=== PATIENT | female | born 1945 | race Caucasian/White ===

== ENCOUNTER 2018-11-15 19:39 | Inpatient (IN) ==
[2018-11-15] MEDS ORDERED: SODIUM CHLORIDE 0.9% 1000ML 1,000 ML IV ONE (20:59)
[2018-11-15 21:27] LABS: Basophils # (auto) 0.02 K/uL (0-0.2); Basophils % (auto) 0.2 %; Eosinophils # (auto) 0.14 K/uL (0-0.5); Eosinophils % (auto) 1.1 %; Hematocrit (blood only) 37.3 % (37-47); Immature Granulocytes # (auto) 0.02 K/uL (0.00-0.02); Immature Granulocytes % (auto) 0.2 %; Lymphocytes # (auto) 1.37 K/uL (1.2-3.4); Mean Corpuscular Hgb Conc 32.2 g/dL (32-36); Mean Corpuscular Volume 92.3 fL (80-100); Mean Platelet Volume 9.7 fL (7.4-10.4); Monocytes # (auto) 0.62 K/uL (0.11-0.59); Neutrophils % (auto) 82.5 %; Platelet Count 237 K/uL (130-400); RDW Coefficient of Variation 13.8 % (11.5-14.5); RDW Standard Deviation 46.4 fL (36.4-46.3); Red Blood Count 4.04 M/uL (4.2-5.4); White Blood Count 12.47 K/uL (4.8-10.8)
[2018-11-15 21:44] LABS: Alanine Aminotransferase 29 U/L (12-78); Albumin Level 3.2 gm/dl (3.4-5.0); Aspartate Aminotransferase 31 U/L (15-37); BUN Creatinine Ratio 23.2 (10-20); Blood Urea Nitrogen 13 mg/dl (7-18); Calcium 8.2 mg/dl (8.5-10.1); Carbon Dioxide 26 mmol/L (21-32); Chloride 103 mmol/L (98-107); Creatinine Clr Calc Pharmacy 60.4 ml/min; Est GFR (African American) 105.1; Est GFR (Non-African American) 90.7; Glucose 108 mg/dl (70-99); Magnesium 2.4 mg/dl (1.8-2.4); Potassium 3.6 mmol/L (3.5-5.1); Sodium 139 mmol/L (136-145)
--- NOTE | 2018-11-15 21:49 | XRay Report ---
SINGLE VIEW CHEST CLINICAL HISTORY: Syncope. FINDINGS: An AP, portable, upright chest radiograph is obtained. No prior studies are available for c omparison at the time of dictation. The examination is degraded by portable technique and patient rot ation. The cardiomediastinal silhouette is unremarkable comment noting atherosclerotic calcification of the thoracic aorta. Enlargement of the central pulmonary arteries suggests pulmonary artery hyper tension. Emphysema is suspected. Interstitial thickening is likely chronic. Patchy airspace consolida tion is seen at the lateral right lung base. A trace right pleural effusion is suspected. Atelectasis is noted at the left lung base. No pneumothorax is seen. The skeletal structures are osteopenic. The bony thorax is grossly intact. IMPRESSION: 1. There is patchy airspace consolidation at the right lung base. This could represent scarring/atele ctasis and/or pneumonia/aspiration pneumonitis. Clinical correlation will be required and radiographi c follow-up to resolution is recommended. 2. There is a trace right pleural effusion. 3. Suspect emphysema. Electronically signed by: Roque Church M.D. 11/15/2018 9:47 PM
[2018-11-15 21:55] LABS: Albumin Globulin Ratio 1.1 (0.9-2); Alkaline Phosphatase 60 U/L (45-117); Bilirubin,Total 0.2 mg/dl (0.2-1); Phosphorus 3.7 mg/dl (2.5-4.9); Total Protein 6.2 gm/dl (6.4-8.2); Troponin I < 0.015 ng/ml (0-0.045)
[2018-11-15] MEDS ORDERED: SODIUM CHLORIDE 0.9% 1000ML 500 ML IV ONE (23:09)
[2018-11-15] MEDS ORDERED: ALBUT/IPRATROP 3MG/0.5MG NEB 3 ML VIAL NEB STA (23:31)
[2018-11-16] MEDS ORDERED: methylPREDNISolone 125 MG/2 ML VIAL IV STA (01:26)
[2018-11-16] MEDS ORDERED: LEVOFLOXACIN/D5W 750 MG/150 ML BAG IV SCH (01:30)
--- NOTE | 2018-11-16 02:01 | Emergency Department Note ---
Entered by Uriel Farrar acting as a scribe for Shawn Man MD History of Present Illness General Chief complaint: Syncope Stated complaint: SYNCOPE Time Seen by Provider: 11/15/18 20:58 Source: patient History of Present Illness Onset (ago): hour(s) (prior to arrival) Location: head (syncope) Pain Consistency: + other (episode) Exacerbated By: + other (drinking gin and tonic) Associated symptoms: + nausea/vomiting and + other (tiredness, unresponsive) The patient is a 73 year old F who presents to the Emergency Room with complaints of an episode of syncope that occurred prior to arrival. The majority of the HPI was provided by the patients daughter. She states that the patient was at a graduation constitution party for her grandson. She notes that the patient did not have much to eat during the day. She adds that the patient drank gin and tonic at the constitution party. She states that the patient complained that she was tired and threw up. She notes that after throwing up, the patient put her head down on a table and was unresponsive. She states that the patient recently has lost a lot of weight. She adds that the patient is not on any blood thinners. Home Medications Home Medications Medication Instructions Recorded Confirmed Type cholecalciferol (vitamin D3) 1,000 unit PO DAILY 11/16/18 11/16/18 History [Vitamin D3] fluticasone furoate-vilanterol 1 puff INHALATION DAILY 11/16/18 11/16/18 History [Breo Ellipta] lorazepam 0.5 mg PO BID PRN 11/16/18 11/16/18 History paroxetine HCl [Paxil] 10 mg PO DAILY 11/16/18 11/16/18 History Allergies Allergy/AdvReac Type Severity Reaction Status Date / Time rofecoxib [From Vioxx] Allergy Unknown Verified 11/16/18 01:50 Sulfa (Sulfonamide Allergy Rash Verified 11/16/18 01:50 Antibiotics) Past Med/Surg History Medical History No pertinent past medical history Family History Other No significant family history Social History Preferred Language: [place] Communication Ability: Effective City Bailiff Required: No Beliefs That Will Affect Care: None Current Living Situation: Alone Other Information That Helps Us Care for You: No Feels Safe at Home: Yes Safety Concerns: Feels Safe At This Time Smoking Status: Current some day smoker Hx Alcohol Use: Yes Alcohol type: hard liquor Hx Substance Use: No Review of Systems See HPI for pertinent positives & negatives. and A total of 10 systems reviewed and were otherwise negative Physical Exam Vital Signs Vital Signs - 24 hr 11/15/18 19:44 11/15/18 19:49 11/15/18 19:51 Temperature 35.6 C L Temperature Source Rectal Sepsis Recent Fever Within 48 Hours No Sepsis Action Taken by Nursing No Action Required Pulse Rate 70 72 68 Pulse Rate [Right Finger] Pulse Rate from SpO2 Sensor 70 69 Pulse Rhythm [Right Finger] Pulse Strength [Right Finger] Respiratory Rate 16 20 21 Respiratory Effort / Characteristics Respiratory Depth Normal Respiratory Pattern Blood Pressure 127/60 127/60 Blood Pressure [Right Arm] Blood Pressure Mean 82 82 Blood Pressure Mean [Right Arm] Blood Pressure Position [Right Arm] Pulse Oximetry 94 96 95 Pulse Oximetry [Right Index Finger] Oxygen Delivery Method Room Air Oxygen Delivery Method [Right Index Finger] Oxygen Flow Rate Oxygen Flow Rate [Right Index Finger] 11/15/18 20:00 11/15/18 20:01 11/15/18 20:30 Temperature Temperature Source Sepsis Recent Fever Within 48 Hours Sepsis Action Taken by Nursing Pulse Rate 64 64 57 L Pulse Rate [Right Finger] Pulse Rate from SpO2 Sensor 64 64 56 L Pulse Rhythm [Right Finger] Pulse Strength [Right Finger] Respiratory Rate 18 18 17 Respiratory Effort / Characteristics Respiratory Depth Respiratory Pattern Blood Pressure 118/63 Blood Pressure [Right Arm] Blood Pressure Mean 81 Blood Pressure Mean [Right Arm] Blood Pressure Position [Right Arm] Pulse Oximetry 99 99 100 Pulse Oximetry [Right Index Finger] Oxygen Delivery Method Oxygen Delivery Method [Right Index Finger] Oxygen Flow Rate Oxygen Flow Rate [Right Index Finger] 11/15/18 20:31 11/15/18 20:32 11/15/18 21:00 Temperature Temperature Source Sepsis Recent Fever Within 48 Hours Sepsis Action Taken by Nursing Pulse Rate 70 64 67 Pulse Rate [Right Finger] Pulse Rate from SpO2 Sensor 69 64 67 Pulse Rhythm [Right Finger] Pulse Strength [Right Finger] Respiratory Rate 15 17 16 Respiratory Effort / Characteristics Respiratory Depth Respiratory Pattern Blood Pressure 78/51 L 87/45 L Blood Pressure [Right Arm] Blood Pressure Mean 60 59 Blood Pressure Mean [Right Arm] Blood Pressure Position [Right Arm] Pulse Oximetry 100 100 98 Pulse Oximetry [Right Index Finger] Oxygen Delivery Method Oxygen Delivery Method [Right Index Finger] Oxygen Flow Rate Oxygen Flow Rate [Right Index Finger] 11/15/18 21:01 11/15/18 21:02 11/15/18 21:30 Temperature Temperature Source Sepsis Recent Fever Within 48 Hours Sepsis Action Taken by Nursing Pulse Rate 67 65 79 Pulse Rate [Right Finger] Pulse Rate from SpO2 Sensor 67 65 79 Pulse Rhythm [Right Finger] Pulse Strength [Right Finger] Respiratory Rate 17 33 H 16 Respiratory Effort / Characteristics Respiratory Depth Respiratory Pattern Blood Pressure 73/37 L 84/43 L Blood Pressure [Right Arm] Blood Pressure Mean 49 56 Blood Pressure Mean [Right Arm] Blood Pressure Position [Right Arm] Pulse Oximetry 98 99 99 Pulse Oximetry [Right Index Finger] Oxygen Delivery Method Oxygen Delivery Method [Right Index Finger] Oxygen Flow Rate Oxygen Flow Rate [Right Index Finger] 11/15/18 21:31 11/15/18 22:00 11/15/18 22:01 Temperature Temperature Source Sepsis Recent Fever Within 48 Hours Sepsis Action Taken by Nursing Pulse Rate 77 73 75 Pulse Rate [Right Finger] Pulse Rate from SpO2 Sensor 78 74 74 Pulse Rhythm [Right Finger] Pulse Strength [Right Finger] Respiratory Rate 18 21 19 Respiratory Effort / Characteristics Respiratory Depth Respiratory Pattern Blood Pressure 91/57 L 93/48 L Blood Pressure [Right Arm] Blood Pressure Mean 68 63 Blood Pressure Mean [Right Arm] Blood Pressure Position [Right Arm] Pulse Oximetry 98 97 98 Pulse Oximetry [Right Index Finger] Oxygen Delivery Method Oxygen Delivery Method [Right Index Finger] Oxygen Flow Rate Oxygen Flow Rate [Right Index Finger] 11/15/18 22:50 11/15/18 23:28 11/16/18 00:30 Temperature Temperature Source Sepsis Recent Fever Within 48 Hours Sepsis Action Taken by Nursing Pulse Rate Pulse Rate [Right Finger] 70 76 Pulse Rate from SpO2 Sensor Pulse Rhythm [Right Finger] Regular Regular Pulse Strength [Right Finger] Normal Normal Respiratory Rate 16 20 Respiratory Effort / Characteristics Non-Labored Non-Labored Respiratory Depth Normal Normal Respiratory Pattern Regular Regular Blood Pressure Blood Pressure [Right Arm] 82/56 L 114/58 L Blood Pressure Mean Blood Pressure Mean [Right Arm] 64 76 Blood Pressure Position [Right Arm] Lying Lying Pulse Oximetry 92 95 Pulse Oximetry [Right Index Finger] Oxygen Delivery Method Nasal Cannula Nasal Cannula Room Air Oxygen Delivery Method [Right Index Finger] Oxygen Flow Rate 2 2 Oxygen Flow Rate [Right Index Finger] 11/16/18 01:15 11/16/18 01:39 11/16/18 02:44 Temperature Temperature Source Sepsis Recent Fever Within 48 Hours Sepsis Action Taken by Nursing Pulse Rate 88 Pulse Rate [Right Finger] 82 84 Pulse Rate from SpO2 Sensor Pulse Rhythm [Right Finger] Regular Regular Pulse Strength [Right Finger] Normal Normal Respiratory Rate 18 18 18 Respiratory Effort / Characteristics Non-Labored Non-Labored Respiratory Depth Normal Normal Respiratory Pattern Regular Regular Blood Pressure 121/64 Blood Pressure [Right Arm] 121/59 L 118/58 L Blood Pressure Mean Blood Pressure Mean [Right Arm] 79 78 Blood Pressure Position [Right Arm] Lying Pulse Oximetry 94 95 93 Pulse Oximetry [Right Index Finger] Oxygen Delivery Method Nasal Cannula Nasal Cannula Nasal Cannula Oxygen Delivery Method [Right Index Finger] Oxygen Flow Rate 2 2 2 Oxygen Flow Rate [Right Index Finger] 11/16/18 03:36 11/16/18 03:37 11/16/18 03:45 Temperature 36.7 C 36.7 C Temperature Source Oral Oral Sepsis Recent Fever Within 48 Hours Sepsis Action Taken by Nursing Pulse Rate Pulse Rate [Right Finger] 85 85 Pulse Rate from SpO2 Sensor Pulse Rhythm [Right Finger] Pulse Strength [Right Finger] Respiratory Rate Respiratory Effort / Characteristics Respiratory Depth Respiratory Pattern Blood Pressure Blood Pressure [Right Arm] 116/66 116/66 Blood Pressure Mean Blood Pressure Mean [Right Arm] 82 82 Blood Pressure Position [Right Arm] Pulse Oximetry 94 94 Pulse Oximetry [Right Index Finger] 94 Oxygen Delivery Method Nasal Cannula Nasal Cannula Oxygen Delivery Method [Right Index Finger] Nasal Cannula Oxygen Flow Rate 2 2 Oxygen Flow Rate [Right Index Finger] 2 11/16/18 04:12 Temperature Temperature Source Sepsis Recent Fever Within 48 Hours Sepsis Action Taken by Nursing Pulse Rate Pulse Rate [Right Finger] Pulse Rate from SpO2 Sensor Pulse Rhythm [Right Finger] Pulse Strength [Right Finger] Respiratory Rate Respiratory Effort / Characteristics Respiratory Depth Respiratory Pattern Blood Pressure Blood Pressure [Right Arm] Blood Pressure Mean Blood Pressure Mean [Right Arm] Blood Pressure Position [Right Arm] Pulse Oximetry Pulse Oximetry [Right Index Finger] Oxygen Delivery Method Nasal Cannula Oxygen Delivery Method [Right Index Finger] Oxygen Flow Rate 2 Oxygen Flow Rate [Right Index Finger] GENERAL: Awake, drowsy, fatigued appearing, no distress HENT: Normocephalic, atraumatic. TM's normal. Oropharynx with dry mucous membranes and otherwise unremarkable. EYES: PERRL. EOMI. Normal conjunctiva. Sclera non-icteric. NECK: Supple. No nuchal rigidity. FROM. No JVD or bruit. RESPIRATORY: CTA CARDIAC: RRR. No murmur. ABDOMEN: Soft, non distended. No tenderness to palpation. No rebound or guarding. No masses. RECTAL: Deferred. MUSCULOSKELETAL: Unremarkable. No edema. No discoloration. Gross motor strength symmetric. Moving all extremities equally. NEURO: Cranial nerves 2-12 grossly intact. Normal sensorium. No sensory or motor deficits noted. Speech normal. SKIN: No rash or jaundice noted. LYMPH: No adenopathy Course 2106: The patient was evaluated in room C10. A complete history and physical exam was performed. 0129: I reviewed the patient's case with [facility] [place] [facility] He will evaluate the patient for further management. Consultations Consultation #1: I reviewed the patient's case with Dr[facility] [place] He will evaluate the patient for further management. Time: 01:29 Administered Medications Levofloxacin/Dextrose (Levaquin/D5w) 750 mg in 150 mls @ 100 mls/hr IV Q24H [facility] Stop: 11/23/18 01:29 Last Infusion: 11/16/18 03:35 Dose: 0 mls/hr Documented by: [id number] Admin: 11/16/18 01:35 Dose: 100 mls/hr Documented by: [id number] Sodium Chloride (Nss 1000ml) 1,000 mls @ 80 mls/hr IV .[id number] [facility] Stop: 12/16/18 03:29 Last Admin: 11/16/18 04:16 Dose: 80 mls/hr Documented by: [id number] Discontinued Medications Albuterol (Duoneb) 3 ml NEB NOW STA Stop: 11/15/18 23:32 Last Admin: 11/15/18 23:42 Dose: 3 ml Documented by: [id number] Sodium Chloride (Nss 1000ml) 1,000 mls @ 999 mls/hr IV .Q1H1M ONE Stop: 11/15/18 21:59 Last Infusion: 11/15/18 21:51 Dose: 0 mls/hr Documented by: [id number] Admin: 11/15/18 21:17 Dose: 999 mls/hr Documented by: [id number] Sodium Chloride (Nss 1000ml) 500 mls @ 999 mls/hr IV .Q31M ONE Stop: 11/15/18 23:39 Last Infusion: 11/16/18 00:59 Dose: 0 mls/hr Documented by: [id number] Admin: 11/15/18 23:28 Dose: 999 mls/hr Documented by: [id number] Methylprednisolone (Solumedrol) 125 mg IV NOW STA Stop: 11/16/18 01:27 Last Admin: 11/16/18 01:35 Dose: 125 mg Documented by: [id number] Medical Decision Making Differential Diagnosis Differential diagnosis includes: vasovagal event, infection, hypoglycemia, electrolyte abnormalities, cardiac sources, intracerebral event, toxicologic, neurologic, as well as others were entertained. Medical Records Attestation: I reviewed the patient's medical records. Home Medications Current Medication List: was personally reviewed by me Laboratory Data Attestation: I reviewed the patient's lab results. Result diagrams: 11/15/18 21:07 11/15/18 21:07 Lab Results 11/15/18 11/15/18 11/15/18 Range/Units 21:07 21:07 21:07 WBC 12.47 H (4.8-10.8) K/uL RBC 4.04 L (4.2-5.4) M/uL Hgb 12.0 (12.0-16.0) g/dL Hct 37.3 (37-47) % MCV 92.3 (80-100) fL MCH 29.7 (25-34) pg MCHC 32.2 (32-36) g/dL RDW Std Deviation 46.4 H (36.4-46.3) fL RDW Coeff of Ham 13.8 (11.5-14.5) % Plt Count 237 (130-400) K/uL MPV 9.7 (7.4-10.4) fL Immature Gran % (Auto) 0.2 % Neut % (Auto) 82.5 % Lymph % (Auto) 11.0 % [place] % (Auto) 5.0 % Eos % (Auto) 1.1 % Baso % (Auto) 0.2 % Immature Gran # (Auto) 0.02 (0.00-0.02) K/uL Neut # (Auto) 10.30 H (1.4-6.5) K/uL Lymph # (Auto) 1.37 (1.2-3.4) K/uL [place] # (Auto) 0.62 H (0.11-0.59) K/uL Eos # (Auto) 0.14 (0-0.5) K/uL Baso # (Auto) 0.02 (0-0.2) K/uL Sodium 139 (136-145) mmol/L Potassium 3.6 (3.5-5.1) mmol/L Chloride 103 (98-107) mmol/L Carbon Dioxide 26 (21-32) mmol/L Anion Gap 10.0 (3-11) BUN 13 (7-18) mg/dl Creatinine 0.57 L (0.6-1.2) mg/dl Est Cr Clr Drug Dosing 60.4 ml/min Est GFR ( Amer) 105.1 Est GFR (Non-Af Amer) 90.7 BUN/Creatinine Ratio 23.2 H (10-20) Glucose 108 H (70-99) mg/dl Calcium 8.2 L (8.5-10.1) mg/dl Phosphorus 3.7 (2.5-4.9) mg/dl Magnesium 2.4 (1.8-2.4) mg/dl Total Bilirubin 0.2 (0.2-1) mg/dl AST 31 (15-37) U/L ALT 29 (12-78) U/L Alkaline Phosphatase 60 (45-117) U/L Troponin I < 0.015 (0-0.045) ng/ml Total Protein 6.2 L (6.4-8.2) gm/dl Albumin 3.2 L (3.4-5.0) gm/dl Globulin 3.0 (2.5-4.0) gm/dl Albumin/Globulin Ratio 1.1 (0.9-2) TSH 0.709 (0.300-4.500) uIu/ml Ethyl Alcohol mg/dL 101.6 H (0-3) mg/dl Imaging Data Radiologist's Impression: Radiology results as stated below per my review and the radiologist's interpretation: SINGLE VIEW CHEST CLINICAL HISTORY: Syncope. FINDINGS: An AP, portable, upright chest radiograph is obtained. No prior studies are available for comparison at the time of dictation. The examination is degraded by portable technique and patient rotation. The cardiomediastinal silhouette is unremarkable comment noting atherosclerotic calcification of the thoracic aorta. Enlargement of the central pulmonary arteries suggests pulmonary artery hypertension. Emphysema is suspected. Interstitial thickening is likely chronic. Patchy airspace consolidation is seen at the lateral right lung base. A trace right pleural effusion is suspected. Atelectasis is noted at the left lung base. No pneumothorax is seen. The skeletal structures are osteopenic. The bony thorax is grossly intact. IMPRESSION: 1. There is patchy airspace consolidation at the right lung base. This could represent scarring/atelectasis and/or pneumonia/aspiration pneumonitis. Clinical correlation will be required and radiographic follow-up to resolution is recommended. 2. There is a trace right pleural effusion. 3. Suspect emphysema. Electronically signed by: Roque Church M.D. 11/15/2018 9:47 PM ECG Data Attestation: I personally reviewed and interpreted this ECG as follows: Indication: syncope Rate (beats per minute): 62 Rhythm: normal sinus Findings: + other (left axis deviation); no acute ischemic change Blood Pressure Blood Pressure Findings: Low blood pressure Blood Pressure Disposition: further management by hospitalist ZEUS Leos The patient is a pleasant 73-year-old woman with a past medical history of chronic lung disease who presents emergency department with intoxication and unresponsiveness while at dinner for her grandchild's graduation per hpi. On arrival the patient is drowsy and intoxicated appearing but no acute distress, afebrile, hypotensive 70s-80s/40s-50s though not tachycardic. Patient appears clinically dry. She is moving all extremities equally. There is no evidence of trauma. Scant wheezes and rhonchi of the right lung base. EKG unremarkable without evidence of acute ischemia. CXR with right basilar opacity that is suspicious for pneumonia. WBC 12.4, nonspecific. H/H and platelets within normal limits. Chemistry without acidosis. Troponin negative. EtOH 101.6. Patient feeling improved after IV fluid hydration and her blood pressures were fluid responsive improving to 110s/50s. However, the patient was found to be hypoxic on arrival which was thought to be secondary to her intoxication however this persisted despite becoming more alert as she metabolized. Moreover, patient was given duoneb without improvement. The patient was able to ambulate with normal oxygenation on room air she quickly will desaturate as low as the 70s with a good waveform when sitting or lying in bed. I had extensive conversation with the patient and her family and mother reports she does have chronic lung disease and is usually short of breath at baseline we acknowledged that and oxygenation of 70% is too low even for someone with chronic lung disease. He w as subsequently agreeable with admission. Given the patient's oxygen saturation is worse from her baseline reasonable to treat for likely pneumonia. Treat with Levaquin. Case was discussed with Dr. Cuevas, [facility] hospitalist, who will evaluate the patient for admission. Impression & Plan PNA (pneumonia), Dehydration, Hypoxia, Intoxication Discharge Plan Visit Data *Final* Discharge Date/Time: 11/16/18 02:44 Chief Complaint: Syncope Stated Complaint: SYNCOPE ED Provider: Shawn Man Discharge Problem: PNA (pneumonia), Dehydration, Hypoxia, Intoxication Patient Disposition: Admitted As Inpatient Discharge Instructions Interventions: ED Discharge Assessment Last Done: 11/16/18 02:44 Discharge Problem: PNA (pneumonia) Qualifiers: Pneumonia type: due to unspecified organism Laterality: right Lung location: lower lobe of lung Qualified Code(s): J18.1 - Lobar pneumonia, unspecified organism The scribe's documentation has been prepared under my direction and personally reviewed by me in its entirety. I confirm that the note above accurately ref lects all work, treatment, procedures, and medical decision making performed by me.
--- NOTE | 2018-11-16 02:32 | History and Physical Report ---
DATE OF ADMISSION: 11/16/2018 CHIEF COMPLAINT: Syncope. HISTORY OF PRESENT ILLNESS: This is a 73-year-old female with past medical history significant for tobacco abuse, possible COPD, anxiety, depression, presents with syncope. The patient is not from the area. She is about 2-1/2 hours from here. She is visiting [place] for her granddaughter's graduation. She was eating her food and she had some drinks and then suddenly she felt nauseous and vomited and she passed out. She does not remember anything. She woke up and by that time she was in the hospital and since then she is doing okay. She did not know what happened. She did not feel it before passing out, but after coming to the hospital she somewhat dizzy. She does not drink regularly, she drinks only once or twice a year. Alcohol level was 101 in the ER. Her passed about 6 months ago and she lives alone. She uses a cane at home, sometimes a walker. Denies any chest pain, no shortness of breath, no cough, no fever, no chills, no headache, no blurred visions. Somewhat hard of hearing. No sore throat, no difficulty swallowing. Appetite is not that great since her . Currently Not nauseous. No abdominal pain. Normal bowel and bladder movements. No swelling in the legs. Currently, resting comfortable and hemodynamically stable and she says that recently in August, she had 2 weeks course of Cipro for pseudomonas in her sputum. ALLERGIES: ROFECOXIB AND SULFA ANTIBIOTICS. PAST MEDICAL HISTORY: As mentioned above. PAST SURGICAL HISTORY: Breast lumpectomy which was benign. SOCIAL HISTORY: Quit smoking about 7 years ago, prior to that smoked 1 pack a day for many years. Alcohol once or twice a year. Lives alone. FAMILY HISTORY: Noncontributory. REVIEW OF SYMPTOMS: As per HPI. Rest of the review of symptoms negative. PHYSICAL EXAMINATION: GENERAL: The patient is of moderate build, not in acute distress. VITAL SIGNS: Temperature 35.6, pulse 84, respiratory rate 18, blood pressure 118/58, oxygen 95% on 2 liters. HEENT: No pallor, no icterus. Pupils equal, round, and reactive to light. NECK: No JVD, no neck masses, no carotid bruits. CARDIOVASCULAR: S1, S2 heard, regular rate and rhythm, no murmur, no gallop. RESPIRATORY SYSTEM: Normal AP diameter, no accessory muscle use. No wheezing, no crackles. ABDOMEN: Soft, bowel sounds present. Nontender. No distention. CENTRAL NERVOUS SYSTEM: Cranial nerves II-XII grossly intact. Nonfocal. EXTREMITIES: No edema, no erythema. LABORATORY DATA: WBC 12.4, hemoglobin 12, hematocrit 37.3, platelets 237. Sodium 139, potassium 3.6, chloride 103, bicarbonate 26, BUN 13, creatinine 0.5, serum glucose 108, calcium 8.2, phosphorus 3.7, magnesium 2.4, total bilirubin 0.2, AST 31, ALT 29, alkaline phosphatase 60, troponin I less than 0.015. TSH 0.7,Alcohol level 101. IMAGING DATA: Chest x-ray: Patchy airspace consolidation in the right lung base, could represent atelectasis, pneumonia, or aspiration pneumonitis. Trace right pleural effusion, suspect emphysema. EKG: Normal sinus rhythm at the rate of 62. No acute ST changes seen. ASSESSMENT AND PLAN: This is a 73-year-old female who presents with syncope. 1. Syncope, mostly likely secondary to alcohol or could be dehydration. We will check for orthostatics. Closely monitor in tele floor. We will do serial cardiac enzymes, echocardiogram, PT and OT.Also will do ct head. 2. History of chronic obstructive pulmonary disease. Continue her home inhaler, nebs p.r.n. 3. History of depression and anxiety, Paxil and Ativan p.r.n. 4. Deep venous thrombosis prophylaxis, sequential compression devices. 5. Disposition: Observation in tele floor. Expect to discharge home and follow with her family doctor. Level 1 full code. MTDD
[2018-11-16] MEDS ORDERED: SODIUM CHLORIDE 0.9% 1000ML 1,000 ML IV SCH (03:30)
[2018-11-16] MEDS ORDERED: LORazepam 0.5 MG TAB PO PRN (03:30)
[2018-11-16] MEDS ORDERED: ACETAMINOPHEN 325 MG TAB PO PRN (03:30)
[2018-11-16] MEDS ORDERED: NITROGLYCERIN SL 0.4 MG/TAB TAB SL PRN (03:30)
[2018-11-16 04:30] LABS: Basophils # (auto) 0.01 K/uL (0-0.2); Basophils % (auto) 0.2 %; Eosinophils # (auto) 0.06 K/uL (0-0.5); Eosinophils % (auto) 0.9 %; Hematocrit (blood only) 39.7 % (37-47); Hemoglobin 13.4 g/dL (12.0-16.0); Immature Granulocytes # (auto) 0.01 K/uL (0.00-0.02); Immature Granulocytes % (auto) 0.2 %; Lymphocytes % (auto) 7.5 %; Mean Corpuscular Hgb Conc 33.8 g/dL (32-36); Mean Corpuscular Volume 92.5 fL (80-100); Mean Platelet Volume 9.4 fL (7.4-10.4); Monocytes % (auto) 1.5 %; Neutrophils # (auto) 5.97 K/uL (1.4-6.5); Neutrophils % (auto) 89.7 %; Platelet Count 244 K/uL (130-400); RDW Coefficient of Variation 14.1 % (11.5-14.5); RDW Standard Deviation 47.3 fL (36.4-46.3); Red Blood Count 4.29 M/uL (4.2-5.4); White Blood Count 6.65 K/uL (4.8-10.8)
[2018-11-16 05:01] LABS: Calcium 8.1 mg/dl (8.5-10.1); Creatinine Clr Calc Pharmacy 48.9 ml/min; Est GFR (African American) 99.2; Est GFR (Non-African American) 85.6; Magnesium 2.2 mg/dl (1.8-2.4); Potassium 4.6 mmol/L (3.5-5.1)
[2018-11-16] MEDS ORDERED: CHOLECALCIFEROL 1,000 UNITS TAB PO SCH (09:00)
[2018-11-16] MEDS ORDERED: PARoxetine HCl 10 MG TAB PO SCH (09:00)
--- NOTE | 2018-11-16 10:01 | CT Scan Report ---
CT OF THE HEAD WITHOUT CONTRAST CLINICAL HISTORY: syncope COMPARISON STUDY: No previous studies for comparison. CT DOSE: 638.56 mGycm TECHNIQUE: Helical axial images of the head were obtained without IV contrast. Automated exposure con trol was utilized for the study. A dose lowering technique was utilized adhering to the principles o f ALARA. FINDINGS: No acute intracranial hemorrhage, midline shift or mass effect is present. There is mild at rophy. Ventricular system is unremarkable. Basilar cisterns are patent. There are no extra-axial bill ections. There are no findings to suggest acute dural sinus thrombosis or acute territorial infarct. There is no calvarial fracture. There is mild ethmoid sinus mucosal thickening. IMPRESSION: No acute intracranial findings. Electronically signed by: Santos Torres M.D. 11/16/2018 9:59 AM
[2018-11-16 10:44] VITALS: BP 95/52; PULSE 64; TEMP 98.8; O2SAT 97
--- NOTE | 2018-11-16 10:57 | Hospitalist Progress Note ---
Date of Service November 16, 2018 Assessment & Plan (1) PNA (pneumonia): (2) Syncope and collapse: (3) Dehydration: (4) Hypoxia: (5) Alcohol intoxication: Continue IVFs, DC later today, Back to her baseline Results & Data Vital Signs (Past 12 Hours) Vital Signs Temp Pulse Pulse Resp BP BP Pulse Ox 11/16/18 10:43 37.1 C 64 18 95/52 L 97 11/16/18 10:35 75 11/16/18 07:53 37.3 C 80 18 111/54 L 91 11/16/18 03:45 36.7 C 85 116/66 94 11/16/18 03:37 11/16/18 03:36 36.7 C 85 116/66 94 11/16/18 02:44 88 18 121/64 93 11/16/18 01:39 84 18 118/58 L 95 11/16/18 01:15 82 18 121/59 L 94 11/15/18 23:28 76 20 114/58 L 95 Pulse Ox 11/16/18 10:43 11/16/18 10:35 11/16/18 07:53 11/16/18 03:45 11/16/18 03:37 94 11/16/18 03:36 11/16/18 02:44 11/16/18 01:39 11/16/18 01:15 11/15/18 23:28 Allergies rofecoxib [From Vioxx] Allergy (Verified 11/16/18 01:50) Unknown Sulfa (Sulfonamide Antibiotics) Allergy (Verified 11/16/18 01:50) Rash Height/Weight/Isolation Height 5 ft Weight 43.3 kg Chemistry 11/15/18 11/16/18 21:07 04:17 Sodium 139 140 Potassium 3.6 4.6 D Chloride 103 106 Carbon Dioxide 26 32 Anion Gap 10.0 2.0 L BUN 13 9 Creatinine 0.57 L 0.68 Glucose 108 H 100 H (1) PNA (pneumonia) Laterality: right Lung location: lower lobe of lung Pneumonia type: due to unspecified organism Qualified Code(s): J18.1 - Lobar pneumonia, unspecified organism
--- NOTE | 2018-11-16 11:02 | Discharge Summary ---
Date of Service November 16, 2018 Admission HPI Per Admitting Provider 73-year-old female with past medical history significant for tobacco abuse, possible COPD, anxiety, depression, presents with syncope. The patient is not from the area. She is about 2-1/2 hours from here. She is visiting [place] for her granddaughter's graduation. She was eating her food and she had some drinks and then suddenly she felt nauseous and vomited and she passed out. She does not remember anything. She woke up and by that time she was in the hospital and since then she is doing okay. She did not know what happened. She did not feel it before passing out, but after coming to the hospital she somewhat dizzy. She does not drink regularly, she drinks only once or twice a year. Alcohol level was 101 in the ER. Her passed about 6 months ago and she lives alone. She uses a cane at home, sometimes a walker. Denies any chest pain, no shortness of breath, no cough, no fever, no chills, no headache, no blurred visions. Somewhat hard of hearing. No sore throat, no difficulty swallowing. Appetite is not that great since her . Currently Not nauseous. No abdominal pain. Normal bowel and bladder movements. No swelling in the legs. Currently, resting comfortable and hemodynamically stable and she says that recently in August, she had 2 weeks course of Cipro for pseudomonas in her sputum. Admission Exam Per Admitting Provider PHYSICAL EXAMINATION: GENERAL: The patient is of moderate build, not in acute distress. VITAL SIGNS: Temperature 35.6, pulse 84, respiratory rate 18, blood pressure 118/58, oxygen 95% on 2 liters. HEENT: No pallor, no icterus. Pupils equal, round, and reactive to light. NECK: No JVD, no neck masses, no carotid bruits. CARDIOVASCULAR: S1, S2 heard, regular rate and rhythm, no murmur, no gallop. RESPIRATORY SYSTEM: Normal AP diameter, no accessory muscle use. No wheezing, no crackles. ABDOMEN: Soft, bowel sounds present. Nontender. No distention. CENTRAL NERVOUS SYSTEM: Cranial nerves II-XII grossly intact. Nonfocal. EXTREMITIES: No edema, no erythema. Principal Diagnosis Syncope c Collapse sec to Alcohol EToH Intoxication Dehydration Hypoxia Mild Aspiration PNA Discharge Exam ROS-No Headache, No Visual Changes, No Nausea, No Vomiting, No Fever, No Chills, No Neck Pain or Stiffness, No Chest Pain, No Palpitations, No SOB, No GUZMAN, No Cough, No Sputum, No Wheezing, No Abdominal Pain, No Diarrhea, No Hematemesis, No Hemoptysis, No Unexpected Weight Loss, No Flank pain, No Melena, No Hematochezia, No Frequency, No Urgency, No Burning, No Hematuria, No Rashes, No Diaphoresis. Appetite is Normal Physical Exam Gen-AAO x 3, NAD, Afebrile Head-NCAT, EOMI, PERRLA, Anicteric Sclera, No Posterior Pharyngeal Erythema Neck-Supple, No JVD, No Thyromegaly, No Masses, No LAD, No Bruits Lungs-Clear to Auscultation Bilaterally, R Rales, No Rhonchi, No Wheezing, No Crepitus Chest-No S4, +S1, +S2, No S3, No Murmurs, No Rubs, No Gallops, No Ectopy Abdomen-Soft, Bowel Sounds Present, Non Tender, Non Distended, No Hepatomegaly, No Splenomegaly, No Palpable Masses, No Rebound, No Rigidity, No Guarding Musculoskeletal-Full Range of Motion Bilaterally, No CVAT Extremities-No Cyanosis, No Clubbing, No Edema Nuero-Cranial Nerves II-XII grossly intact, Motor WNL, DTRs WNL, Strength WNL, Non Focal Psych-Normal Mood Discharge Data Allergies Allergy/AdvReac Type Severity Reaction Status Date / Time rofecoxib [From Vioxx] Allergy Unknown Verified 11/16/18 01:50 Sulfa (Sulfonamide Allergy Rash Verified 11/16/18 01:50 Antibiotics) Consultations 11/16/18 01:26 ED Decision to Admit Stat Ordered Studies 11/16/18 07:42 CT head/brain wo con Urgent Current Diagnoses Dehydration (11/16/18) Alcohol use, unspecified with intoxication, unspecified (11/16/18) Lobar pneumonia, unspecified organism (11/16/18) Hypoxemia (11/16/18) Syncope and collapse (11/16/18) Allergies rofecoxib [From Vioxx] Allergy (Verified 11/16/18 01:50) Unknown Sulfa (Sulfonamide Antibiotics) Allergy (Verified 11/16/18 01:50) Rash Height/Weight/Isolation Height 5 ft Weight 43.3 kg Chemistry 11/15/18 11/16/18 21:07 04:17 Sodium 139 140 Potassium 3.6 4.6 D Chloride 103 106 Carbon Dioxide 26 32 Anion Gap 10.0 2.0 L BUN 13 9 Creatinine 0.57 L 0.68 Glucose 108 H 100 H Hospital Course (1) PNA (pneumonia): (2) Syncope and collapse: (3) Dehydration: (4) Hypoxia: (5) Alcohol intoxication: DC home, follow up at home c PCP, Augmentin x 5 days Total Time Total Time Spent Total Time Spent (In Minutes): 45 mins Total Time Includes: Examination of the Patient, Discharge Planning, Medication Reconciliation and Communication With Other Providers Discharge Plan Discharge Items Patient Disposition: Home - Self-Care Reason For Visit: SYNCOPE Discharge Diagnosis: Syncope with Collapse Aspiration Pneumonia Alcohol Intoxication Dehydration Hypoxia Discharge Goals: Improve function Activity: Resume your previous activity Lifting: Gradually increase as tolerated Bathing: No limitations Sexual Activity: When tolerated Exercise/Sports: Rest today and Gradually increase as tolerated Driving/Machine Use: No limitations Weightbearing: Left weightbearing and Right weightbearing Non-emergency contact: Primary Care Provider Call non-emergency contact if: you have any medication questions and your symptoms worsen Follow-up/Referrals: PCP,NO [Primary Care Provider] - (PCP out of area, no follow up needed) Diet: Regular Addtl Provider Instructions: None Prescriptions: New amoxicillin-pot clavulanate [Augmentin] 875-125 mg tablet 1 tab PO BID Qty: 10 RF: 0 Continued Breo Ellipta 100-25 mcg/dose blister with device 1 puff inhalation DAILY RF: 0 paroxetine HCl [Paxil] 10 mg Tablet 10 mg PO DAILY RF: 0 lorazepam 0.5 mg tablet 0.5 mg PO BID PRN (Reason: Anxiety) RF: 0 cholecalciferol (vitamin D3) [Vitamin D3] 1,000 unit Tablet 1,000 unit PO DAILY RF: 0 Stand-Alone Forms: [facility] Discharge Orders: Discharge Order (Routine); Ordered 11/16/18 Ordered By: Abelardo Gamble Admission Data Admit Date/Time: 11/16/18 02:17 Attending Provider: Abelardo Gamble Admit Provider: Gibson Cuevas Primary Care Provider: PCP,NO Other Providers: Gibson Cuevas Service: Telemetry
== END 2018-11-16 13:15 | disposition home or self-care (01) | DRG 896 ==
LOC: ED 19:39 → 2S 11-16 02:17 → SUATTDRO 11-16 02:17 → 2S 11-16 02:44